=== PATIENT | female | born 2000 | race Caucasian/White ===

== ENCOUNTER 2020-07-23 04:53 | Emergency (ER) | payer OTHER ==
[2020-07-23 04:59] VITALS: TEMP 97.9
[2020-07-23] MEDS ORDERED: ONDANSETRON 4 MG/2 ML VIAL IVP STA (05:34)
[2020-07-23] MEDS ORDERED: SODIUM CHLORIDE 0.9% 1,000 ML IV STA (05:34)
--- NOTE | 2020-07-23 05:35 | ED ---
Nausea/Vomiting/Diarrhea HPI - General Chief complaint: Nausea/Vomiting/Diarrhea Stated complaint: Nausea Source: patient Mode of arrival: ambulatory Limitations: no limitations - History of Present Illness Initial comments: Stefania is a 19-year-old female presents the ER today for evaluation of nausea and lightheadedness. Patient reports that she's noticed frequently she is wak ing up feeling nauseated sometime she is somewhat lightheaded. Patient does admit that she doesn't eat well, she went to bed last night and had eaten since lunchtime. She woke early this morning feeling kind of flushed lightheaded and became nauseated. Patient has no significant medical history she is not diabetic. She does not have established primary care here because she just moved here less than one month ago as her is in the . Patient states she just became somewhat anxious this morning because she is currently living alone her has been deployed - Related Data Previous Rx's Medication Instructions Recorded Ondansetron [Zofran ODT] 4 mg PO Q8HR #12 tab 07/23/20 Allergies Allergy/AdvReac Type Severity Reaction Status Date / Time No Known Allergies Allergy Verified 07/23/20 04:59 Review of Systems ROS Statement: Those systems with pertinent positive or pertinent negative responses have been documented in the HPI. ROS Other: All systems not noted in ROS Statement are negative. Past Medical History Additional Past Medical History / Comment(s): vertigo History of Any Multi-Drug Resistant Organisms: None Reported Past Surgical History: No Surgical Hx Reported Past Psychological History: No Psychological Hx Reported Smoking Status: Never smoker Past Alcohol Use History: None Reported Past Drug Use History: None Reported General Exam - General Exam Comments Initial Comments: Physical Exam GENERAL: Patient is well-developed and well-nourished. Patient is nontoxic and well- hydrated and is in no distress. HENT: Normocephalic, Atraumatic. EYES: PERRL, EOMI PULMONARY: Unlabored respirations. No audible rales rhonchi or wheezing was noted. CARDIOVASCULAR: There is a regular rate and rhythm without any murmurs gallops or rubs. ABDOMEN: Soft and nontender with normal bowel sounds. SKIN: Skin is clear with no lesions or rashes and otherwise unremarkable. : Deferred NEUROLOGIC: Patient is alert and oriented x3. Moving all extremities spontaneously MUSCULOSKELETAL: Normal extremities with adequate strength and full range of motion. No lower extremity swelling or edema. No calf tenderness. PSYCHIATRIC: Normal psychiatric evaluation. Limitations: no limitations Course Vital Signs 07/23/20 07/23/20 04:55 07:05 Temperature 97.9 F Pulse Rate 116 H 80 Respiratory 20 16 Rate Blood Pressure 125/74 121/72 O2 Sat by Pulse 99 98 Oximetry Medical Decision Making - Medical Decision Making The patient was seen and evaluated history was obtained from the patient I discussed with patient my concern that she is likely becoming hypoglycemic during the night due to not eating well throughout the day. I advised that she should eat snacks throughout the day. Patient does admit that the stress of moving and then her immediately being deployed has been quite stressful for her she's not been eating or drinking or sleeping well. His labs were unremarkable she'll be given Zofran for her nausea and referred to primary care for follow-up. Return parameters were discussed or questions pertaining care were answered patient was discharged home in stable condition. - Lab Data Result diagrams: 07/23/20 05:44 07/23/20 05:44 Lab Results 07/23/20 07/23/20 07/23/20 Range/Units 05:44 05:44 05:44 WBC 9.0 (4.0-11.0) k/uL RBC 4.51 (3.80-5.40) m/uL Hgb 13.1 (11.4-16.0) gm/dL Hct 39.9 (34.0-46.0) % MCV 88.5 (80.0-100.0) fL MCH 29.1 (25.0-35.0) pg MCHC 32.8 (31.0-37.0) g/dL RDW 12.1 (11.5-15.5) % Plt Count 288 (150-450) k/uL Neutrophils % 68 % Lymphocytes % 23 % Monocytes % 5 % Eosinophils % 3 % Basophils % 0 % Neutrophils # 6.1 (1.3-7.7) k/uL Lymphocytes # 2.1 (1.0-4.8) k/uL Monocytes # 0.4 (0-1.0) k/uL Eosinophils # 0.2 (0-0.7) k/uL Basophils # 0.0 (0-0.2) k/uL Sodium 138 (137-145) mmol/L Potassium 3.7 (3.5-5.1) mmol/L Chloride 105 (98-107) mmol/L Carbon Dioxide 26 (22-30) mmol/L Anion Gap 7 mmol/L BUN 9 (7-17) mg/dL Creatinine 0.70 (0.52-1.04) mg/dL Est GFR (CKD-EPI)AfAm >90 (>60 ml/min/1.73 sqM) Est GFR (CKD-EPI)NonAf >90 (>60 ml/min/1.73 sqM) Glucose 100 H (74-99) mg/dL Calcium 9.0 (8.4-10.2) mg/dL Magnesium 1.7 (1.6-2.3) mg/dL Total Bilirubin 0.6 (0.2-1.3) mg/dL AST 23 (14-36) U/L ALT 27 (4-34) U/L Alkaline Phosphatase 51 (38-126) U/L Total Protein 7.3 (6.3-8.2) g/dL Albumin 4.3 (3.5-5.0) g/dL Lipase 87 (23-300) U/L Urine Color Yellow Urine Appearance Turbid H (Clear) Urine pH 5.5 (5.0-8.0) Ur Specific [place] 1.029 (1.001-1.035) Urine Protein 1+ H (Negative) Urine Glucose (UA) Negative (Negative) Urine Ketones Negative (Negative) Urine Blood Small H (Negative) Urine Nitrite Negative (Negative) Urine Bilirubin Negative (Negative) Urine Urobilinogen <2.0 (<2.0) mg/dL Ur Leukocyte Esterase Small H (Negative) Urine RBC 4 (0-5) /hpf Urine WBC 16 H (0-5) /hpf Ur Squamous Epith Cells 68 H (0-4) /hpf Hyaline Casts 4 H (0-2) /lpf Urine Mucus Many H (None) /hpf Urine HCG, Qual (Not Detectd) 07/23/20 Range/Units 05:44 WBC (4.0-11.0) k/uL RBC (3.80-5.40) m/uL Hgb (11.4-16.0) gm/dL Hct (34.0-46.0) % MCV (80.0-100.0) fL MCH (25.0-35.0) pg MCHC (31.0-37.0) g/dL RDW (11.5-15.5) % Plt Count (150-450) k/uL Neutrophils % % Lymphocytes % % Monocytes % % Eosinophils % % Basophils % % Neutrophils # (1.3-7.7) k/uL Lymphocytes # (1.0-4.8) k/uL Monocytes # (0-1.0) k/uL Eosinophils # (0-0.7) k/uL Basophils # (0-0.2) k/uL Sodium (137-145) mmol/L Potassium (3.5-5.1) mmol/L Chloride (98-107) mmol/L Carbon Dioxide (22-30) mmol/L Anion Gap mmol/L BUN (7-17) mg/dL Creatinine (0.52-1.04) mg/dL Est GFR (CKD-EPI)AfAm (>60 ml/min/1.73 sqM) Est GFR (CKD-EPI)NonAf (>60 ml/min/1.73 sqM) Glucose (74-99) mg/dL Calcium (8.4-10.2) mg/dL Magnesium (1.6-2.3) mg/dL Total Bilirubin (0.2-1.3) mg/dL AST (14-36) U/L ALT (4-34) U/L Alkaline Phosphatase (38-126) U/L Total Protein (6.3-8.2) g/dL Albumin (3.5-5.0) g/dL Lipase (23-300) U/L Urine Color Urine Appearance (Clear) Urine pH (5.0-8.0) Ur Specific [place] (1.001-1.035) Urine Protein (Negative) Urine Glucose (UA) (Negative) Urine Ketones (Negative) Urine Blood (Negative) Urine Nitrite (Negative) Urine Bilirubin (Negative) Urine Urobilinogen (<2.0) mg/dL Ur Leukocyte Esterase (Negative) Urine RBC (0-5) /hpf Urine WBC (0-5) /hpf Ur Squamous Epith Cells (0-4) /hpf Hyaline Casts (0-2) /lpf Urine Mucus (None) /hpf Urine HCG, Qual Not Detected (Not Detectd) Disposition Clinical Impression: Nausea Disposition: HOME SELF-CARE Condition: Stable Instructions (If sedation given, give patient instructions): Acute Nausea and Vomiting (ED) Prescriptions: Ondansetron [Zofran ODT] 4 mg PO Q8HR #12 tab Is patient prescribed a controlled substance at d/c from ED?: No Referrals: None,Stated [Primary Care Provider] - 1-2 days Elmer Beltran MD [STAFF PHYSICIAN] - 1-2 days Ingrid Faust MD [STAFF PHYSICIAN] - 1-2 days Lisa Amin MD [STAFF PHYSICIAN] - 1-2 days
[2020-07-23 06:00] LABS: Basophils % (A) 0 %; Eosinophils # (A) 0.2 k/uL (0-0.7); Eosinophils % (A) 3 %; HCT 39.9 % (34.0-46.0); HGB 13.1 gm/dL (11.4-16.0); Lymphocytes # (A) 2.1 k/uL (1.0-4.8); Lymphocytes % (A) 23 %; MCH 29.1 pg (25.0-35.0); MCHC 32.8 g/dL (31.0-37.0); MCV 88.5 fL (80.0-100.0); Mean Platelet Volume 6.9; Monocytes # (A) 0.4 k/uL (0-1.0); Monocytes % (A) 5 %; Neutrophils # (A) 6.1 k/uL (1.3-7.7); Neutrophils % (A) 68 %; Platelet Count 288 k/uL (150-450); RBC 4.51 m/uL (3.80-5.40); RDW 12.1 % (11.5-15.5)
[2020-07-23 06:03] LABS: Appearance,Urine Turbid (Clear); Bilirubin,Urine Negative (Negative); Blood,Urine Small (Negative); Color,Urine Yellow; Glucose,Urine (UA) Negative (Negative); Hyaline Casts,Urine 4 /lpf (0-2); Ketones,Urine Negative (Negative); Leukocyte Esterase,Urine Small (Negative); Mucus,Urine Many /hpf; Nitrite,Urine Negative (Negative); PH, Urine 5.5 (5.0-8.0); Protein,Urine 1+ (Negative); RBC,Urine 4 /hpf (0-5); Specific Gravity,Urine 1.029 (1.001-1.035); Squamous Epithelial Cell,Urine 68 /hpf (0-4); Urobilinogen,Urine <2.0 mg/dL (<2.0); WBC,Urine 16 /hpf (0-5)
[2020-07-23 06:25] LABS: ALT 27 U/L (4-34); AST 23 U/L (14-36); African American GFR (CKD) >90 (>60 ml/min/1.73 sqM); Albumin 4.3 g/dL (3.5-5.0); Alkaline Phosphatase 51 U/L (38-126); Anion Gap 7 mmol/L; Blood Urea Nitrogen 9 mg/dL (7-17); Carbon Dioxide 26 mmol/L (22-30); Chloride 105 mmol/L (98-107); Glucose 100 mg/dL (74-99); Magnesium 1.7 mg/dL (1.6-2.3); Non-African American GFR(CKD) >90 (>60 ml/min/1.73 sqM); Potassium 3.7 mmol/L (3.5-5.1); Sodium 138 mmol/L (137-145); Total Bilirubin 0.6 mg/dL (0.2-1.3); Total Protein 7.3 g/dL (6.3-8.2)
[2020-07-23] MEDS ORDERED: ONDANSETRON 4 MG ODT STARTER PACK 2 TAB BTL PO STA (06:58)
[2020-07-23 07:08] VITALS: BP 121/72; PULSE 80; RESP 16
== END 2020-07-23 07:18 | disposition home or self-care (01) ==
LOC: EC 04:53
DX: R11.0 Nausea (principal)
CPT/HCPCS: 36415; 80053; 83690; 83735; 85025; 81001; 81025; 99283; 96374; 96361; J2405; S0119

== ENCOUNTER 2020-08-23 00:43 | Emergency (ER) | payer OTHER ==
[2020-08-23 01:24] LABS: Appearance,Urine Cloudy (Clear); Bacteria,Urine Rare /hpf; Bilirubin,Urine Negative (Negative); Blood,Urine Trace (Negative); Color,Urine Dark Yellow; Glucose,Urine (UA) Negative (Negative); Ketones,Urine Negative (Negative); Leukocyte Esterase,Urine Moderate (Negative); Mucus,Urine Many /hpf; Nitrite,Urine Negative (Negative); Protein,Urine Trace (Negative); RBC,Urine 8 /hpf (0-5); Specific Gravity,Urine 1.027 (1.001-1.035); Squamous Epithelial Cell,Urine 11 /hpf (0-4); WBC,Urine 101 /hpf (0-5)
[2020-08-23] MEDS ORDERED: SULFAMETHOX-TMP 800-160MG 1 EACH TAB PO STA (01:37)
[2020-08-23] MEDS ORDERED: PHENAZOPYRIDINE 100 MG TAB PO STA (01:37)
--- NOTE | 2020-08-23 01:38 | ED ---
Female Urogenital HPI - General Chief complaint: Urogenital Stated complaint: Possible UTI Time Seen by Provider: 08/23/20 00:49 Source: patient Mode of arrival: ambulatory Limitations: no limitations - History of Present Illness Initial comments: this patient is a 19-year-old woman who presents to be evaluated for frequency urgency and dysuria. She states thatsymptoms initially came on for days ago and were itching progressively worse. Patient states she did try [id number] Azo, without much relief. No systemic symptoms, no fever or chills, no tachycardia, chest pain or dyspnea. No abdominal pain or back pain. MD Complaint: dysuria Onset/Timin -: days(s) Location: perineum Radiation: non-radiating Severity: mild Quality: burning Consistency: intermittent Improves with: none Worsens with: urination Last Menstrual Period: 08/16/20 - Related Data Previous Rx's Medication Instructions Recorded Ondansetron [Zofran ODT] 4 mg PO Q8HR #12 tab 07/23/20 Phenazopyridine [Pyridium] 100 mg PO TID #6 tablet 08/23/20 Sulfamethox-Tmp 800-160Mg [Bactrim 1 each PO Q12HR #6 tab 08/23/20 Ds] Allergies Allergy/AdvReac Type Severity Reaction Status Date / Time No Known Allergies Allergy Verified 08/23/20 00:47 Review of Systems ROS Statement: Those systems with pertinent positive or pertinent negative responses have been documented in the HPI. ROS Other: All systems not noted in ROS Statement are negative. Constitutional: Denies: fever, chills, weakness Respiratory: Denies: cough, dyspnea Cardiovascular: Denies: chest pain, palpitations Gastrointestinal: Denies: abdominal pain, nausea, vomiting, diarrhea, constipation Genitourinary: Reports: urgency, dysuria, frequency. Denies: hematuria, discharge, abnormal menses Musculoskeletal: Denies: back pain Skin: Denies: rash Past Medical History Additional Past Medical History / Comment(s): vertigo History of Any Multi-Drug Resistant Organisms: None Reported Past Surgical History: No Surgical Hx Reported Past Psychological History: No Psychological Hx Reported Smoking Status: Never smoker Past Alcohol Use History: None Reported Past Drug Use History: None Reported General Exam Limitations: no limitations General appearance: alert, in no apparent distress Head exam: Present: atraumatic Respiratory exam: Present: normal lung sounds bilaterally. Absent: respiratory distress, wheezes, rales, rhonchi, stridor Cardiovascular Exam: Present: regular rate, normal rhythm, normal heart sounds. Absent: systolic murmur, diastolic murmur, rubs, gallop GI/Abdominal exam: Present: soft. Absent: distended, tenderness, guarding, rebound, rigid, mass Back exam: Absent: CVA tenderness (R), CVA tenderness (L) Neurological exam: Present: alert Skin exam: Present: warm, dry, intact, normal color. Absent: rash Course Vital Signs 08/23/20 00:45 Temperature 98.3 F Pulse Rate 63 Respiratory 20 Rate Blood Pressure 122/79 O2 Sat by Pulse 98 Oximetry Medical Decision Making - Medical Decision Making patient's 19-year-old woman with urinary tract infection symptoms, found to have many white blood cells in the urine consistent with urinary tract infection. Did discuss that sometimes STI can mimic UTI, therefore patient will return or follow with civil engineer land development should symptoms not improve or if there is any worsening. Declines knowledge of any risk factors. - Lab Data Lab Results 08/23/20 08/23/20 Range/Units 01:08 01:08 Urine Color Dark Yellow Urine Appearance Cloudy H (Clear) Urine pH 6.0 (5.0-8.0) Ur Specific [place] 1.027 (1.001-1.035) Urine Protein Trace H (Negative) Urine Glucose (UA) Negative (Negative) Urine Ketones Negative (Negative) Urine Blood Trace H (Negative) Urine Nitrite Negative (Negative) Urine Bilirubin Negative (Negative) Urine Urobilinogen 2.0 (<2.0) mg/dL Ur Leukocyte Esterase Moderate H (Negative) Urine RBC 8 H (0-5) /hpf Urine WBC 101 H (0-5) /hpf Urine WBC Clumps Rare H (None) /hpf Ur Squamous Epith Cells 11 H (0-4) /hpf Urine Bacteria Rare H (None) /hpf Urine Mucus Many H (None) /hpf Urine HCG, Qual Not Detected (Not Detectd) Disposition Clinical Impression: Urinary tract infection Disposition: HOME SELF-CARE Condition: Good Instructions (If sedation given, give patient instructions): Urinary Tract Infection in Women (ED) Prescriptions: Sulfamethox-Tmp 800-160Mg [Bactrim Ds] 1 each PO Q12HR #6 tab Phenazopyridine [Pyridium] 100 mg PO TID #6 tablet Is patient prescribed a controlled substance at d/c from ED?: No Referrals: None,Stated [Primary Care Provider] - 1-2 days
[2020-08-23 01:55] VITALS: BP 118/72; PULSE 68; RESP 16; TEMP 98.5
== END 2020-08-23 01:50 | disposition home or self-care (01) ==
LOC: EC 00:43
DX: N39.0 Urinary tract infection, site not specified (principal)
CPT/HCPCS: 81001; 81025; 99283

== ENCOUNTER 2021-01-02 20:45 | Emergency (ER) | payer OTHER ==
[2021-01-02 21:10] VITALS: RESP 18; TEMP 97.8
[2021-01-02] MEDS ORDERED: diphenhydrAMINE 50 MG/ML 1 ML VIAL IVP STA (21:58)
[2021-01-02] MEDS ORDERED: ONDANSETRON 4 MG/2 ML VIAL IVP STA (21:58)
[2021-01-02] MEDS ORDERED: KETOROLAC 15 MG/ML 1 ML VIAL IVP STA (21:58)
[2021-01-02] MEDS ORDERED: SODIUM CHLORIDE 0.9% 500 ML 500 ML IV STA (21:58)
--- NOTE | 2021-01-02 21:59 | ED ---
General Adult HPI - General Chief complaint: Headache Stated complaint: COVID+, Blurred vision Time Seen by Provider: 01/02/21 21:48 Source: patient, RN notes reviewed Mode of arrival: ambulatory Limitations: no limitations - History of Present Illness Initial comments: Patient is a 20-year-old female that presents to emergency department with a migraine headache with aura. She notes that she is having a doan spot in her vision during the entire duration of her headache. She notes that she has a 6 out of 10 pain that is unrelieved with home medications. She notes that she does not follow-up primary care or have a primary care. She notes that she was diagnosed with covert several days ago and then the headache became worse. She denied taking any medication for it. She denied any chest pain shortness of breath nausea vomiting diarrhea constipation fever fatigue chills. - Related Data Previous Rx's Medication Instructions Recorded Ondansetron [Zofran ODT] 4 mg PO Q8HR #12 tab 07/23/20 Phenazopyridine [Pyridium] 100 mg PO TID #6 tablet 08/23/20 Sulfamethox-Tmp 800-160Mg [Bactrim 1 each PO Q12HR #6 tab 08/23/20 Ds] Allergies Allergy/AdvReac Type Severity Reaction Status Date / Time No Known Allergies Allergy Verified 01/02/21 21:10 Review of Systems ROS Statement: Those systems with pertinent positive or pertinent negative responses have been documented in the HPI. ROS Other: All systems not noted in ROS Statement are negative. Past Medical History Past Medical History: No Reported History Additional Past Medical History / Comment(s): vertigo History of Any Multi-Drug Resistant Organisms: None Reported Past Surgical History: No Surgical Hx Reported Additional Past Surgical History / Comment(s): eye surgery- correctional Past Psychological History: No Psychological Hx Reported Smoking Status: Never smoker Past Alcohol Use History: None Reported Past Drug Use History: None Reported General Exam Limitations: no limitations General appearance: alert, in no apparent distress Head exam: Present: atraumatic, normocephalic, normal inspection Eye exam: Present: normal appearance, PERRL, EOMI. Absent: scleral icterus, conjunctival injection, periorbital swelling ENT exam: Present: normal exam, mucous membranes moist Neck exam: Present: normal inspection. Absent: tenderness, meningismus, lymphadenopathy Respiratory exam: Present: normal lung sounds bilaterally. Absent: respiratory distress, wheezes, rales, rhonchi, stridor Cardiovascular Exam: Present: regular rate, normal rhythm, normal heart sounds. Absent: systolic murmur, diastolic murmur, rubs, gallop, clicks GI/Abdominal exam: Present: soft, normal bowel sounds. Absent: distended, tenderness, guarding, rebound, rigid Extremities exam: Present: normal inspection, full ROM, normal capillary refill. Absent: tenderness, pedal edema, joint swelling, calf tenderness Neurological exam: Present: alert, oriented X3, CN II-XII intact Psychiatric exam: Present: normal affect, normal mood Skin exam: Present: warm, dry, intact, normal color. Absent: rash Course Vital Signs 01/02/21 21:07 Temperature 97.8 F Pulse Rate 104 H Respiratory 18 Rate Blood Pressure 127/87 O2 Sat by Pulse 98 Oximetry Medical Decision Making - Medical Decision Making 20-year-old female complaining of migraine headache with aura. 0.5 L normal saline, 50 mg of Benadryl, 4 mg of Zofran, 50 mg of Toradol ordered. Case discussed with Dr. Sifuentes, patient can discharge home with follow-up to primary care. Disposition Clinical Impression: Migraine with aura Disposition: HOME SELF-CARE Condition: Stable Instructions (If sedation given, give patient instructions): Acute Headache (ED) Additional Instructions: Please return to the Emergency Department if symptoms worsen or any other concerns. Follow-up with primary care 1-3 days. Per CDC guidelines quarantine for 10-14 days, due to positive Covid status. Take [id number] pain medications as needed for symptomatic control of headache. Increase oral fluid intake to help with headache management. Is patient prescribed a controlled substance at d/c from ED?: No Referrals: Albert Whitfield MD [Primary Care Provider] - 1-2 days Time of Disposition: 22:39
[2021-01-03 00:01] VITALS: BP 117/74; PULSE 95
== END 2021-01-03 00:01 | disposition home or self-care (01) ==
LOC: EC 20:45
DX: G43.109 Migraine with aura, not intractable, without status migrainosus (principal)
CPT/HCPCS: 99283; 96374; 96375 ×2; 96361; J1200; J2405; J1885

== ENCOUNTER 2021-07-09 00:43 | Emergency (ER) | payer OTHER ==
--- NOTE | 2021-07-09 01:19 | XR ---
EXAMINATION TYPE: XR chest 2V DATE OF EXAM: 07/09/2021 COMPARISON: NONE HISTORY: Chest pain TECHNIQUE: 2 views FINDINGS: Heart and mediastinum are normal. Lungs are clear. Diaphragm is normal. Bony thorax appears normal. IMPRESSION: Normal chest.
--- NOTE | 2021-07-09 02:10 | ED ---
Chest Pain HPI - General Chief Complaint: Chest Pain Stated Complaint: Chest Pain Time Seen by Provider: 07/09/21 02:01 Source: patient Mode of arrival: ambulatory Limitations: no limitations - Related Data Home Medications Medication Instructions Recorded Confirmed Alyacen 1 tab PO DAILY 01/02/21 01/02/21 Allergies Allergy/AdvReac Type Severity Reaction Status Date / Time No Known Allergies Allergy Verified 07/09/21 01:01 Review of Systems ROS Statement: Those systems with pertinent positive or pertinent negative responses have been documented in the HPI. ROS Other: All systems not noted in ROS Statement are negative. EKG Findings - EKG Comments: EKG Findings:: EKG is sinus rhythm 99, MN 188 QRS 86 QTc 467 Past Medical History Past Medical History: No Reported History Additional Past Medical History / Comment(s): vertigo History of Any Multi-Drug Resistant Organisms: None Reported Past Surgical History: No Surgical Hx Reported Additional Past Surgical History / Comment(s): eye surgery- correctional Past Psychological History: No Psychological Hx Reported Smoking Status: Never smoker Past Alcohol Use History: None Reported Past Drug Use History: None Reported General Exam Limitations: no limitations Course Vital Signs 07/09/21 00:59 Temperature 97.9 F Pulse Rate 102 H Respiratory 20 Rate Blood Pressure 146/93 O2 Sat by Pulse 100 Oximetry Disposition Clinical Impression: Atypical chest pain, Chest pain Disposition: HOME SELF-CARE Condition: Good Instructions (If sedation given, give patient instructions): Chest Pain (ED) Is patient prescribed a controlled substance at d/c from ED?: No Referrals: Luca Davis III, MD [Primary Care Provider] - 1-2 days
[2021-07-09] MEDS ORDERED: SODIUM CHLORIDE 0.9% 1,000 ML IV STA (02:12)
[2021-07-09] MEDS ORDERED: LORazepam 2 MG/ML INJ IV STA (02:12)
[2021-07-09 02:56] LABS: Basophils % (A) 1 %; Eosinophils # (A) 0.3 k/uL (0-0.7); Eosinophils % (A) 4 %; HCT 39.5 % (34.0-46.0); HGB 13.2 gm/dL (11.4-16.0); Lymphocytes # (A) 2.7 k/uL (1.0-4.8); Lymphocytes % (A) 38 %; MCH 29.6 pg (25.0-35.0); MCHC 33.4 g/dL (31.0-37.0); MCV 88.7 fL (80.0-100.0); Mean Platelet Volume 7.3; Monocytes # (A) 0.4 k/uL (0-1.0); Monocytes % (A) 6 %; Neutrophils # (A) 3.4 k/uL (1.3-7.7); Neutrophils % (A) 49 %; Platelet Count 284 k/uL (150-450); RBC 4.45 m/uL (3.80-5.40); RDW 11.8 % (11.5-15.5); WBC 6.9 k/uL (3.8-10.6)
[2021-07-09 03:08] LABS: ALT 29 U/L (4-34); AST 32 U/L (14-36); African American GFR (CKD) >90 (>60 ml/min/1.73 sqM); Albumin 4.4 g/dL (3.5-5.0); Alkaline Phosphatase 55 U/L (38-126); Anion Gap 11 mmol/L; Blood Urea Nitrogen 10 mg/dL (7-17); Calcium 9.6 mg/dL (8.4-10.2); Carbon Dioxide 23 mmol/L (22-30); Chloride 105 mmol/L (98-107); Creatine Kinase 135 U/L (30-135); Glucose 104 mg/dL (74-99); Lipase 153 U/L (23-300); Magnesium 1.9 mg/dL (1.6-2.3); Non-African American GFR(CKD) >90 (>60 ml/min/1.73 sqM); Potassium 3.6 mmol/L (3.5-5.1); Sodium 139 mmol/L (137-145); Total Bilirubin 0.4 mg/dL (0.2-1.3); Total Protein 7.6 g/dL (6.3-8.2)
[2021-07-09 03:12] LABS: INR 0.9 (<1.2)
--- NOTE | 2021-07-09 03:14 | CT ---
EXAMINATION TYPE: CT angio chest DATE OF EXAM: 07/09/2021 COMPARISON: None HISTORY: chest pressure and pain with exhale CT DLP: 261.1 mGycm Automated exposure control for dose reduction was used. CONTRAST: Performed with IV Contrast, patient injected with 70 mL of Isovue 370. Images obtained from the diaphragm to the floor the pelvis with IV contrast. There are 3-D post proce ssed images. The lungs are clear of infiltrate. There is no pleural effusion or pneumothorax. Heart size is normal . There is no pericardial effusion. There are no hilar masses. There is no mediastinal adenopathy. Thoracic aorta is intact. There is no aneurysm or dissection. There is normal contrast opacification of the pulmonary arteries. There are no filling defects. The t horacic spine is intact. There is no compression fracture. Sternum is intact. IMPRESSION: Normal exam. No evidence of pulmonary embolism.
[2021-07-09 03:40] VITALS: RESP 18
[2021-07-09 04:28] VITALS: BP 138/90; PULSE 85; TEMP 98.2
== END 2021-07-09 04:26 | disposition home or self-care (01) ==
LOC: EC 00:43
DX: R07.89 Other chest pain (principal)
CPT/HCPCS: 36415; 71046; 71275; 80053; 81025; 82550; 83690; 83735; 83880; 84484; 85025; 85379; 85610; 85730; 93005; 96360; 99285

== ENCOUNTER 2022-02-28 03:47 | Emergency (ER) | payer OTHER ==
[2022-02-28 03:57] VITALS: BP 119/80; PULSE 101; RESP 18; TEMP 97.8
--- NOTE | 2022-02-28 05:44 | ED ---
ENT HPI - General Chief complaint: Upper Respiratory Infection Stated complaint: Ear Infection Time Seen by Provider: 02/28/22 04:45 Source: patient, RN notes reviewed, old records reviewed Mode of arrival: ambulatory Limitations: no limitations - History of Present Illness Initial comments: This is a 21-year-old female to the emergency department for evaluation. Patient's presents today for evaluation of severe left ear pain does admit to recent swimming does not use Q-tips. No other trauma or injury, no significant fever. No travel history sick contacts, patient has no sore throat is complaining of left ear pain MD complaint: ear pain -: days(s) Location: L ear Severity: severe Severity scale (1-10): 9 Quality: stabbing, aching, sharp Consistency: constant Improves with: none Worsens with: swallowing Associated Symptoms: toothache - Related Data Home Medications Medication Instructions Recorded Confirmed Alyacen 1 tab PO DAILY 01/02/21 01/02/21 Previous Rx's Medication Instructions Recorded Amoxic-Pot Clav 875-125Mg 1 tab PO Q12HR #20 tablet 02/28/22 [Augmentin 875-125] Allergies Allergy/AdvReac Type Severity Reaction Status Date / Time No Known Allergies Allergy Verified 03/08/22 10:43 Review of Systems ROS Statement: Those systems with pertinent positive or pertinent negative responses have been documented in the HPI. ROS Other: All systems not noted in ROS Statement are negative. Past Medical History Past Medical History: No Reported History Additional Past Medical History / Comment(s): vertigo, History of Any Multi-Drug Resistant Organisms: None Reported Past Surgical History: No Surgical Hx Reported Additional Past Surgical History / Comment(s): eye surgery- correctional Past Psychological History: No Psychological Hx Reported Smoking Status: Never smoker Past Alcohol Use History: None Reported Past Drug Use History: None Reported General Exam Limitations: no limitations General appearance: alert, in no apparent distress Head exam: Present: atraumatic, normocephalic, normal inspection Eye exam: Present: normal appearance, PERRL, EOMI. Absent: scleral icterus, conjunctival injection, periorbital swelling ENT exam: Present: normal exam, mucous membranes moist. Absent: TM's normal bilaterally (Patient does have significant left otitis externa, cellulitis and swelling) Neck exam: Present: normal inspection. Absent: tenderness, meningismus, lymphadenopathy Respiratory exam: Present: normal lung sounds bilaterally. Absent: respiratory distress, wheezes, rales, rhonchi, stridor Cardiovascular Exam: Present: regular rate, normal rhythm, normal heart sounds. Absent: systolic murmur, diastolic murmur, rubs, gallop, clicks GI/Abdominal exam: Present: soft, normal bowel sounds. Absent: distended, tenderness, guarding, rebound, rigid Extremities exam: Present: normal inspection, full ROM, normal capillary refill. Absent: tenderness, pedal edema, joint swelling, calf tenderness Back exam: Present: normal inspection Neurological exam: Present: alert, oriented X3, CN II-XII intact Psychiatric exam: Present: normal affect, normal mood Skin exam: Present: warm, dry, intact, normal color. Absent: rash Course Vital Signs 02/28/22 03:52 Temperature 97.8 F Pulse Rate 101 H Respiratory 18 Rate Blood Pressure 119/80 O2 Sat by Pulse 97 Oximetry - Reevaluation(s) Reevaluation #1: 02/28/22 medical record is reviewed Patient symptoms improved here in the ER Patient informed results and questions answered Medical Decision Making - Medical Decision Making 21 female for left otitis externa. Patient given treatment here in the ER feeling improved and can be discharged home Disposition Clinical Impression: Left otitis externa Disposition: HOME SELF-CARE Condition: Good Instructions (If sedation given, give patient instructions): Swimmer's Ear (ED), Barotitis Media (ED) Prescriptions: Amoxic-Pot Clav 875-125Mg [Augmentin 875-125] 1 tab PO Q12HR #20 tablet Is patient prescribed a controlled substance at d/c from ED?: No Referrals: Luca Davis III, MD [Primary Care Provider] - 1-2 days
[2022-02-28] MEDS ORDERED: CIPROFLOXACIN-DEXAMETH 0.3-0.1% DROPS 7.5 ML BTL LEFT EAR STA (06:25)
[2022-02-28] MEDS ORDERED: AMOXIC-POT CLAV 875-125MG 1 EACH TAB PO STA (06:25)
[2022-02-28] MEDS ORDERED: IBUPROFEN 600 MG TAB PO STA (06:26)
[2022-02-28] MEDS ORDERED: IBUPROFEN 600 MG STARTER PACK 4 TAB BTL PO STA (06:26)
[2022-02-28] MEDS ORDERED: Acetaminophen-Codeine 300-30mg TAB PO STA (06:26)
[2022-02-28] MEDS ORDERED: ACET/COD 300 MG/30 MG STARTER PACK 6 TAB BTL PO STA (06:26)
== END 2022-02-28 07:32 | disposition home or self-care (01) ==
LOC: EC 03:47
DX: H60.92 Unspecified otitis externa, left ear (principal)
CPT/HCPCS: 99282

== ENCOUNTER 2022-03-08 10:39 | Emergency (ER) | payer OTHER ==
[2022-03-08 10:43] VITALS: BP 122/73; PULSE 82; RESP 18; TEMP 98
[2022-03-08 11:23] LABS: Appearance,Urine Clear (Clear); Bilirubin,Urine Negative (Negative); Color,Urine Yellow; Glucose,Urine (UA) Negative (Negative); Ketones,Urine 1+ (Negative); Protein,Urine Trace (Negative); Specific Gravity,Urine 1.031 (1.001-1.035)
[2022-03-08 11:24] LABS: Blood,Urine Negative (Negative); Leukocyte Esterase,Urine Negative (Negative); Nitrite,Urine Negative (Negative); Urobilinogen,Urine <2.0 mg/dL (<2.0)
--- NOTE | 2022-03-08 12:06 | US ---
EXAMINATION TYPE: Transabdominal DATE OF EXAM: 03/08/2022 11:44 AM COMPARISON: NONE CLINICAL HISTORY: 6-7 weeks /abd pain. Abd pain x 2 weeks. Positive beta hCG test. EXAM PERFORMED: Transabdominal (TA) EXAM MEASUREMENTS: GESTATIONAL AGE / DATING Physician Established: Not yet established Dates by LMP: 01/21/22 (6 weeks/4 days) EDC: 10/28/22 Dates by First Scan: No previous this is first scan Dates by Current Scan for: 03/08/22 (6 weeks/1 days) EDC: 10/31/21 MATERNAL ANATOMY Uterus: 8.0 x 6.6 x 4.9 cm Right Ovary: 3.7 x 3.4 x 2.3 cm Left Ovary: 3.8 x 2.5 x 1.6 Post CDS / Adnexa: WNL Presence of free fluid: No Presence of corpus luteal cyst: in right ovary measuring 2.3 x 1.5 x 1.2cm Presence of subchorionic bleed: Heterogeneous area adjacent to gestational sac, questionable small bl eed. GESTATION / SURVEY CRL: 0.36cm (6 weeks/1 days) Yolk Sac (normal less than 6mm): 2.4mm Heart Rate: 169 bpm Rhythm: Normal IUP: Viable IUP Age Appropriate Anatomy Cord Insertion: Too early to visualize Limbs: Too early to visualize Calvarium: Too early to visualize Date of LMP: 01/21/22 Single live intrauterine gestation as gestational sac, yolk sac, and pole are present. No free fluid in pelvic cul-de-sac. Both ovaries are seen. Within the right ovary there is 2.3 cm peripheral hypoechoic lesion thought to reflect corpus luteal cyst. No extraovarian adnexal masses. IMPRESSION: Single live intrauterine gestation is seen, mean crown-rump length 0.4 cm corresponding t o 6 week 1 day old fetus.
--- NOTE | 2022-03-08 13:24 | ED ---
General Adult HPI - General Chief complaint: Abdominal Pain Stated complaint: 6wks preg/Abd pain Time Seen by Provider: 03/08/22 13:00 Source: patient, RN notes reviewed, old records reviewed Mode of arrival: ambulatory Limitations: no limitations - History of Present Illness Initial comments: This is a well-appearing 21-year-old female who presents to the emergency room with complaints of epigastric abdominal pain. She denies any vomiting or diarrhea. She denies any fevers. She denies any vaginal bleeding or pelvic pain. She states that the pain is burning and sharp in nature and he gets better after she eats and then within a half an hour the pain returns. She is only taking vitamins. She denies smoking she did go to urgent care and they did a urinalysis that was negative. -: week(s) (2) Location: abdomen (Epigastric) Severity scale (1-10): 6 Quality: sharp Improves with: eating Worsens with: none Associated Symptoms: denies other symptoms Treatments Prior to Arrival: none - Related Data Home Medications Medication Instructions Recorded Confirmed Alyacen 1 tab PO DAILY 01/02/21 01/02/21 Previous Rx's Medication Instructions Recorded Amoxic-Pot Clav 875-125Mg 1 tab PO Q12HR #20 tablet 02/28/22 [Augmentin 875-125] Allergies Allergy/AdvReac Type Severity Reaction Status Date / Time No Known Allergies Allergy Verified 03/08/22 10:43 Review of Systems ROS Statement: Those systems with pertinent positive or pertinent negative responses have been documented in the HPI. ROS Other: All systems not noted in ROS Statement are negative. Past Medical History Past Medical History: No Reported History Additional Past Medical History / Comment(s): vertigo, History of Any Multi-Drug Resistant Organisms: None Reported Past Surgical History: No Surgical Hx Reported Additional Past Surgical History / Comment(s): eye surgery- correctional Past Psychological History: No Psychological Hx Reported Smoking Status: Never smoker Past Alcohol Use History: None Reported Past Drug Use History: None Reported General Exam Limitations: no limitations General appearance: alert, in no apparent distress Head exam: Present: atraumatic Eye exam: Present: normal appearance. Absent: scleral icterus, conjunctival injection Neck exam: Present: normal inspection, full ROM. Absent: meningismus Respiratory exam: Present: normal lung sounds bilaterally. Absent: respiratory distress, accessory muscle use Cardiovascular Exam: Present: regular rate, normal rhythm, normal heart sounds. Absent: JVD GI/Abdominal exam: Present: soft, tenderness, normal bowel sounds, other. Absent: distended, guarding (Epigastric), rebound, rigid Extremities exam: Present: normal inspection, normal capillary refill Back exam: Present: normal inspection, full ROM. Absent: tenderness, CVA tenderness (R), CVA tenderness (L), rash noted Neurological exam: Present: alert, oriented X3 Psychiatric exam: Present: normal affect, normal mood Skin exam: Present: warm, dry, intact, normal color. Absent: cyanosis, diaphoretic, petechiae, pallor Course Vital Signs 03/08/22 10:39 Temperature 98.0 F Pulse Rate 82 Respiratory 18 Rate Blood Pressure 122/73 O2 Sat by Pulse 99 Oximetry Medical Decision Making - Medical Decision Making Patient denies any problems with . She denies any vaginal bleeding or pelvic pain. She states is epigastric abdominal pain for the past couple weeks. She states it is better with eating. I did explain to the patient that there was a miscommunication. She was offered lab work however did explain to her that she may need a GI consult as epigastric abdominal pain is resolved with eating is likely gastrointestinal in May need a GI consult. Patient denies any fevers. She has nausea denies any diarrhea no hematochezia and no emesis. On exam patient is has epigastric tenderness only. She has no right upper quadrant abdominal pain. She is directed to take Benadryl as needed for any nausea increase her intake. Urinalysis is negative for infection or bacteria. Case discussed with Dr. Parker. - Lab Data Lab Results 03/08/22 03/08/22 Range/Units 11:04 11:04 HCG, Quant 63535.8 mIU/mL Urine Color Yellow Urine Appearance Clear (Clear) Urine pH 6.0 (5.0-8.0) Ur Specific [place] 1.031 (1.001-1.035) Urine Protein Trace H (Negative) Urine Glucose (UA) Negative (Negative) Urine Ketones 1+ H (Negative) Urine Blood Negative (Negative) Urine Nitrite Negative (Negative) Urine Bilirubin Negative (Negative) Urine Urobilinogen <2.0 (<2.0) mg/dL Ur Leukocyte Esterase Negative (Negative) Disposition Clinical Impression: Epigastric abdominal pain during Disposition: HOME SELF-CARE Condition: Good Instructions (If sedation given, give patient instructions): Abdominal Pain in (ED) Additional Instructions: You can take Benadryl as needed for any nausea. Discuss with your HOT BRAIDER the possibility that your vitamins may be causing her epigastric pain. You can also follow up with a hub cutter for your symptoms. Keep a diary of when your symptoms occurr, at what time of the day, how long they lasted, and if related to food at all. Return to the emergency room with any new or concerning symptoms including vomiting blood, increased pain, fevers or persistent nausea vomiting. Is patient prescribed a controlled substance at d/c from ED?: No Referrals: Luca Davis III, MD [Primary Care Provider] - 1-2 days Time of Disposition: 13:24
== END 2022-03-08 13:30 | disposition home or self-care (01) ==
LOC: EC 10:39
DX: O26.891 Other specified pregnancy related conditions, first trimester (principal); R10.13 Epigastric pain; Z3A.01 Less than 8 weeks gestation of pregnancy
CPT/HCPCS: 36415; 76801; 81003; 84702; 99284

== ENCOUNTER 2022-03-28 00:07 | Emergency (ER) | payer OTHER ==
[2022-03-28] MEDS ORDERED: ONDANSETRON 4 MG/2 ML VIAL IVP STA (01:18)
[2022-03-28] MEDS ORDERED: MAG HYDROX/AL HYDROX/SIMETH 30 ML CUP PO PRN (01:18)
[2022-03-28] MEDS ORDERED: DEXTROSE 5%-0.45% NACL 1,000 ML IV ONE (01:19)
--- NOTE | 2022-03-28 01:23 | ED ---
Chest Pain HPI - General Chief Complaint: Chest Pain Stated Complaint: Chest Pain Time Seen by Provider: 03/28/22 01:09 Source: patient Mode of arrival: ambulatory Limitations: no limitations - History of Present Illness Initial Comments: This patient is a 21-year-old woman who presents to have evaluation of pain in the upper substernal area. She states that it has come on over the course of this afternoon/evening. She has had a total of about 40 episodes of vomiting over the past 1-2 days. Patient describes the pain as feeling there are shards there. They're worse when she tries to swallow things. She did not notice any coffee ground emesis or hematemesis. She has had no change in bowel movements. No blood or dark tarry stools. Patient has not had any associated symptoms no dyspnea, diaphoresis, palpitations, lightheadedness. MD Complaint: chest pain -: hour(s) Onset: other Pain Location: substernal Pain Radiation: back Severity: moderate Quality: aching, other (Burning) Consistency: constant Improves With: nothing Worsens With: eating Anginal Symptoms: vomiting Treatments Prior to Arrival: none - Related Data Home Medications Medication Instructions Recorded Confirmed Alyacen 1 tab PO DAILY 01/02/21 01/02/21 Previous Rx's Medication Instructions Recorded Amoxic-Pot Clav 875-125Mg 1 tab PO Q12HR #20 tablet 02/28/22 [Augmentin 875-125] Ondansetron Odt [Zofran ODT] 4 mg PO Q8HR PRN #10 tab 03/28/22 Allergies Allergy/AdvReac Type Severity Reaction Status Date / Time No Known Allergies Allergy Verified 03/28/22 00:20 Review of Systems ROS Statement: Those systems with pertinent positive or pertinent negative responses have been documented in the HPI. ROS Other: All systems not noted in ROS Statement are negative. Constitutional: Denies: fever, chills, weakness Respiratory: Denies: cough, dyspnea, wheezes, hemoptysis Cardiovascular: Reports: as per HPI, chest pain. Denies: palpitations, orthopnea, edema, syncope Gastrointestinal: Reports: nausea, vomiting. Denies: abdominal pain, diarrhea, constipation, hematemesis, melena, hematochezia Genitourinary: Denies: dysuria, hematuria Musculoskeletal: Denies: back pain Skin: Denies: rash Neurological: Denies: headache, weakness Past Medical History Past Medical History: No Reported History Additional Past Medical History / Comment(s): vertigo, History of Any Multi-Drug Resistant Organisms: None Reported Past Surgical History: No Surgical Hx Reported Additional Past Surgical History / Comment(s): eye surgery- correctional Past Psychological History: No Psychological Hx Reported Smoking Status: Never smoker Past Alcohol Use History: None Reported Past Drug Use History: None Reported General Exam Limitations: no limitations General appearance: alert, in no apparent distress Head exam: Present: atraumatic, normocephalic Eye exam: Present: normal appearance. Absent: scleral icterus, conjunctival injection ENT exam: Present: normal oropharynx Neck exam: Present: normal inspection Respiratory exam: Present: normal lung sounds bilaterally. Absent: respiratory distress, wheezes, rales, rhonchi, stridor Cardiovascular Exam: Present: regular rate, normal rhythm, normal heart sounds. Absent: systolic murmur, diastolic murmur, rubs, gallop GI/Abdominal exam: Present: soft. Absent: distended, tenderness, guarding, rebound, rigid, mass Extremities exam: Present: normal inspection, normal capillary refill. Absent: pedal edema, calf tenderness Back exam: Present: normal inspection. Absent: CVA tenderness (R), CVA tenderness (L) Neurological exam: Present: alert Skin exam: Present: warm, dry, intact, normal color. Absent: rash Course Vital Signs 03/28/22 03/28/22 00:19 03:21 Temperature 98 F 98.5 F Pulse Rate 94 75 Respiratory 16 18 Rate Blood Pressure 120/72 112/60 O2 Sat by Pulse 98 100 Oximetry Chest Pain [facility] Patient is 19-year-old woman here with hyperemesis and some secondary esophagitis. She has had improvement with treatment here and would like to go home. We discussed the appropriate further care and follow-up as well as return parameters. Disposition Clinical Impression: Hyperemesis gravidarum Disposition: HOME SELF-CARE Condition: Good Instructions (If sedation given, give patient instructions): Hyperemesis Gravidarum (ED) Prescriptions: Ondansetron Odt [Zofran ODT] 4 mg PO Q8HR PRN #10 tab PRN Reason: Nausea Is patient prescribed a controlled substance at d/c from ED?: No Referrals: Luca Davis III, MD [Primary Care Provider] - 1-2 days Time of Disposition: 03:10
[2022-03-28 01:41] LABS: Basophils % (A) 0 %; Eosinophils # (A) 0.1 k/uL (0-0.7); Eosinophils % (A) 1 %; HCT 40.9 % (34.0-46.0); HGB 14.1 gm/dL (11.4-16.0); Lymphocytes # (A) 2.4 k/uL (1.0-4.8); Lymphocytes % (A) 15 %; MCHC 34.4 g/dL (31.0-37.0); MCV 90.1 fL (80.0-100.0); Mean Platelet Volume 7.1; Monocytes # (A) 0.7 k/uL (0-1.0); Monocytes % (A) 4 %; Neutrophils % (A) 78 %; Platelet Count 360 k/uL (150-450); RBC 4.54 m/uL (3.80-5.40); RDW 12.8 % (11.5-15.5); WBC 15.4 k/uL (3.8-10.6)
[2022-03-28 01:43] LABS: ALT 30 U/L (4-34); AST 26 U/L (14-36); African American GFR (CKD) >90 (>60 ml/min/1.73 sqM); Albumin 4.8 g/dL (3.5-5.0); Alkaline Phosphatase 55 U/L (38-126); Anion Gap 11 mmol/L; Blood Urea Nitrogen 13 mg/dL (7-17); Calcium 9.6 mg/dL (8.4-10.2); Carbon Dioxide 23 mmol/L (22-30); Chloride 101 mmol/L (98-107); Glucose 91 mg/dL (74-99); Non-African American GFR(CKD) >90 (>60 ml/min/1.73 sqM); Potassium 3.8 mmol/L (3.5-5.1); Sodium 135 mmol/L (137-145); Total Bilirubin 0.9 mg/dL (0.2-1.3); Total Protein 7.9 g/dL (6.3-8.2)
[2022-03-28 03:25] VITALS: BP 112/60; PULSE 75; RESP 18; TEMP 98.5
== END 2022-03-28 03:25 | disposition home or self-care (01) ==
LOC: EC 00:07
DX: O21.0 Mild hyperemesis gravidarum (principal); O99.891 Other specified diseases and conditions complicating pregnancy; R07.2 Precordial pain; Z3A.00 Weeks of gestation of pregnancy not specified
CPT/HCPCS: 36415; 93005; 80053; 85025; 99285; 96374; 96361; J2405